=== PATIENT | male | born 1955 | race Caucasian/White ===

== ENCOUNTER → 2019-10-03 08:35 | Outpatient (CLI) | payer MEDICARE, OTHER, SELFPAY ==
--- NOTE | 2019-10-03 08:41 | DI.MRI.S_ITS ---
PROCEDURE: MR LUMBAR SPINE WO CON INDICATIONS: Low back pain TECHNIQUE: Noncontrast sagittal T1 spin echo and T2 fast echo, sagittal STIR, axial T1 and T2 fast spin echo through the lumbar spine. In cases with scoliosis, additional coronal T2 fast spin echo may be performed. COMPARISON: None. FINDINGS: Image quality: Excellent. Alignment and Curvature: There is straightening of the normal lumbar lordosis. Minimal retrolisthesis is seen at L5-S1. Bone Marrow: Marrow is of normal overall signal. No acute vertebral body compression fractures. Spinal Cord: Conus medullaris terminates at the L1 level. Visualized cord demonstrates normal signal and size. Paraspinous Soft Tissues: No paravertebral masses. T12-L1: Normal appearance. L1-L2: The disc height is well-preserved. Loss of disc signal is seen at this level. Relatively prominent bridging anterior osteophytes are seen at this level. Mild generalized disc bulge is seen. Minimal to mild bilateral neural foraminal narrowing can be seen. Moderate central canal narrowing is seen. L2-L3: No significant abnormality is seen. L3-L4: Mild loss of disc height is seen. Loss of disc signal is seen. Mild to moderate disc bulge is seen. There is mild left-sided and no significant right-sided neural foraminal narrowing seen. Mild central canal narrowing is seen. L4-L5: The disc height is well-preserved. Loss of disc signal is seen at this level. Moderate disc bulge is seen, which is eccentric to the left, with a left lateral protrusion, as on series 5, image 28. At least moderate facet hypertrophy is seen at this level. There is at least moderate left-sided and moderate right-sided neural foraminal narrowing seen. At least moderate central canal narrowing is seen at this level. L5-S1: The disc height is well-preserved. Loss of disc signal is seen at this level. Bridging endplate osteophytes are seen. Moderate disc bulge is seen, which is eccentric to the right. Moderate facet joint hypertrophy is seen. Moderate to severe bilateral neural foraminal narrowing is seen, left worse than right. There is a degree of compression seen upon the exiting nerve roots. Mild central canal narrowing is seen. IMPRESSION: Multiple levels of lumbar spine degenerative changes are seen, which are overall most prominent at the L5-S1 level. Dictated by: Linden Houser M.D. on 10/05/2019 at 8:56 Approved by: Linden Houser M.D. on 10/05/2019 at 9:00
== END ==
PROVIDERS: PCP Physician Assistant; Referring Provider Physician Assistant; Visit Provider Physician Assistant
DX: M54.5 Low back pain (principal); M47.817 Spondylosis without myelopathy or radiculopathy, lumbosacral region; M47.816 Spondylosis without myelopathy or radiculopathy, lumbar region
CPT/HCPCS: 72148

== ENCOUNTER → 2021-12-25 09:04 | Outpatient (CLI) | payer MEDICARE, OTHER, SELFPAY ==
[2021-12-25 11:09] LABS: COVID19 -Nasal RAPID Negative (Negative)
== END ==
PROVIDERS: PCP Family Medicine; Visit Provider Surgery
DX: Z20.822 Contact with and (suspected) exposure to COVID-19 (principal); Z01.812 Encounter for preprocedural laboratory examination
CPT/HCPCS: 87635; C9803

== ENCOUNTER 2021-12-26 09:37 | Day surgery (SDC) | payer MEDICARE, OTHER, SELFPAY ==
[2021-12-26] VITALS (8 sets, daily range): BP systolic 128–148; BP diastolic 70–90; PULSE 46–79; RESP 10–18; TEMP 36.7–36.8; O2SAT 95–98; BMI 32.6
[2021-12-26] MEDS: LACTATED RINGERS 1,000 ML 42 ML IV (10:18)
--- NOTE | 2021-12-26 11:23 | PM.HP.1 ---
History of Present Illness History of Present Illness Date Patient Seen: 12/26/21 Time Patient Seen: 11:23 Chief complaint: SDC Narrative: this is his 3rd colonoscopy, last one 7 years ago. Found polyps on the first scope, none since. No family history for colon cancer. Patient History Family & Social History Social History: household members spouse Tobacco & Substance use: Smoking Status Former smoker alcohol intake current alcohol intake frequency a few times a week Substance Use Type does not use Meds Home Medications and Allergies Home Medications Medication Instructions Recorded Confirmed Type sodium,potassium,mag sulfates 17.5 See Rx Instructions PO .COMPLEX 12/18/21 12/26/21 Rx gram-3.13 gram-1.6 gram oral soln #354 mL (Suprep Bowel Prep Kit) ascorbic acid (vitamin C) 2,000 mg 2,000 mg PO DAILY 12/26/21 12/26/21 History tablet,extended release chlorthalidone 25 mg tablet 12.5 mg PO DAILY 12/26/21 12/26/21 History losartan 100 mg tablet 100 mg PO DAILY 12/26/21 12/26/21 History meloxicam 15 mg tablet 15 mg PO DAILY 12/26/21 12/26/21 History Allergies Allergy/AdvReac Type Severity Reaction Status Date / Time No Known Drug Allergies Allergy Verified 12/26/21 09:57 Review of Systems Review of Systems ROS: Yes All systems reviewed with the patient and are negative except as otherwise documented Exam Vital Signs (past 8 hours): - 12/26/21 10:08 Temperature 98.0 F Pulse Rate 60 Respiratory Rate 18 Blood Pressure 128/86 Pulse Oximetry 97 Oxygen Delivery Method Room Air Oxygen Delivery Method Room Air Const General: cooperative and comfortable HENCO Head: normal to inspection, normocephalic and atraumatic Eyes General: appearance normal, both eyes and all related structures Neck Neck: trachea midline Chest Chest: normal inspection of the chest Resp Effort & Inspection: normal respiratory effort and able to speak in complete sentences Cardio Rate: regular rate Rhythm: regular rhythm GI Palpation: soft Skin General: no rashes or lesions noted Neuro General: patient alert, patient awake and patient oriented x3 Cranial Nerves: tongue midline Extrem General: normal to inspection Psych Appearance: grossly normal Mental Status: mental status grossly normal Judgment: judgment good Assessment & Plan Assessment & Plan narrative: h/o colon polyps colonoscopy wit MAC COVID-19 COVID-19 status: Negative Time Spent With Patient Time with patient: less than 30 minutes Critical Care time: I spent a total of [] minutes of critical care time on this patient's care today; this time is exclusive of procedural time.
--- NOTE | 2021-12-26 11:43 | PM.OP.COLON ---
Operative Date/Time/Diagnoses Date of procedure: 12/26/21 Time of procedure: 11:43 Pre-op diagnosis: History of colon polyps Post-op diagnosis: same Procedure & Clinicians Study performed: Colonoscopy using MAC Same procedure as scheduled: Yes Indications: History of colon polyps Surgeon: Anali Leo Procedure Notes Procedure in detail: Preop diagnosis: History of colon polyps Preop diagnosis: Same Operative procedure: Colonoscopy with MAC Surgeon: Aida Leo MD Findings: No polyps, no diverticuli. Procedure: Patient placed in lateral position. Rectal exam performed showing normal tone no masses. Colonoscope inserted into the rectum and advanced to ileocecal valve with minimal difficulty. Insufflation extraction scope and the above findings. Impression: No polyps identified, no diverticulosis. Plan: Repeat colonoscopy in 10 years unless otherwise indicated by change in clinical condition or family history Specimen(s): none sent Complications: none Post-procedure Recommendations: Colonoscopy in 10 years Follow up: as needed Disposition: PACU
== END 2021-12-26 12:25 | disposition home or self-care (01) ==
PROVIDERS: PCP Family Medicine; Referring Provider Surgery; Visit Provider Surgery
PROC: 0DJD8ZZ Inspection of Lower Intestinal Tract, Via Natural or Artificial Opening Endoscopic (ICD-10-PCS; CPT 45378; principal; 2021-12-26 10:45)
DX: Z12.11 Encounter for screening for malignant neoplasm of colon (principal); Z86.010 Personal history of colon polyps
CPT/HCPCS: G0121; J2704; J3010

== ENCOUNTER → 2022-01-16 11:04 | Outpatient (CLI) | payer MEDICARE, OTHER, SELFPAY ==
--- NOTE | 2022-01-16 | DI.RAD.S_ITS ---
PROCEDURE: XR HAND LT MIN 3V INDICATIONS: left hand pain TECHNIQUE: 3 views of the hand(s) acquired. COMPARISON: None. FINDINGS: Bones: No acute fracture or dislocation. 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 There is diffuse interphalangeal joint space narrowing. No periarticular osteopenia or bony erosions. No suspicious bony lesions. Soft tissues: No suspicious soft tissue calcifications. IMPRESSION: 1. Moderate osteoarthritis. Dictated by: Julianna Rincon M.D. on 01/16/2022 at 12:32 Approved by: Julianna Rincon M.D. on 01/16/2022 at 12:33
== END ==
PROVIDERS: PCP Family Medicine; Referring Provider Family Medicine; Visit Provider Family Medicine
DX: M19.042 Primary osteoarthritis, left hand (principal); M79.642 Pain in left hand
CPT/HCPCS: 73130

== ENCOUNTER → 2022-08-07 12:41 | Outpatient (CLI) | payer MEDICARE, OTHER, SELFPAY ==
--- NOTE | 2022-08-07 | DI.CT.S_ITS ---
PROCEDURE: CT LE RT WO CON INDICATIONS: Primary osteoarthritis, right ankle and foot TECHNIQUE: Noncontrast 1-1.5 mm axial sections acquired from above the tibiotalar joint to the bottom of the calcaneus, with coronal and sagittal reformats. COMPARISON: [facility], CR, XR FOOT 3 VIEWS WEIGHT BEARING RIGHT, 07/18/2022, 10:49. FINDINGS: Image quality: Diagnostic. Beam hardening artifacts from right foot surgical hardware are seen.. Bones: There is suggestion of prior surgical fusion at talonavicular joint with [address] Beam hardening artifacts are noted from surgical hardware. No evidence of hardware loosening or failure. There is moderate to severe osteoarthritic changes in talonavicular joint with small amount of bony union surrounding the surgical screws. Moderate osteoarthritic changes are noted throughout rest of the right foot most notably involving subtalar joint and navicular cuneiform joints. No acute fracture or dislocation. No definite osteochondral injuries of talar dome are seen. Small plantar and dorsal calcaneal enthesophytes are seen. No suspicious bony lesions. Soft tissues: There is no significant joint effusion. No abnormal soft tissue calcifications. No full-thickness tendon ruptures. IMPRESSION: 1. Postsurgical changes at talonavicular joint with [address] No evidence of hardware loosening or failure. 2. Moderate to severe osteoarthritic changes at talonavicular joint with prominent dorsal marginal osteophyte formation. Partial bony union surrounding surgical screws at talonavicular joint is seen. 3. [id number] osteoarthritic changes throughout rest of the right foot. No acute fracture or dislocation. No suspicious bony lesions. No definite osteochondral injuries of talar dome. 4. No abnormal soft tissue calcifications. No significant joint effusion or calcified intra-articular loose bodies. No full-thickness tendon rupture. Dictated by: Evert Parker M.D. on 08/07/2022 at 16:41 Approved by: Evert Parker M.D. on 08/07/2022 at 19:54
== END ==
PROVIDERS: PCP Nurse Practitioner Family; Referring Provider Orthopaedic Surgery Foot and Ankle Surgery; Visit Provider Orthopaedic Surgery Foot and Ankle Surgery
DX: M19.071 Primary osteoarthritis, right ankle and foot (principal)
CPT/HCPCS: 73700

== ENCOUNTER → 2023-06-12 09:09 | Outpatient (CLI) | payer MEDICARE, OTHER, SELFPAY ==
--- NOTE | 2023-06-12 09:13 | DI.RAD.S_ITS ---
PROCEDURE: XR HAND LT MIN 3V INDICATIONS: WRIST PAIN TECHNIQUE: 3 views of the hand(s) acquired. COMPARISON: [facility], CR, XR HAND LT MIN 3V, 01/16/2022, 11:16. FINDINGS: Bones: No fractures or dislocations. Carpal bones are normally aligned. No suspicious bony lesions. Indication distal to the 5th metacarpal. Interphalangeal joint space narrowing with osteophytosis. Soft tissues: No suspicious soft tissue calcifications. IMPRESSION: Moderate interphalangeal osteoarthritis, within normal limits for age and slightly progressed from prior. Dictated by: Tim Hoyt M.D. on 06/12/2023 at 16:22 Approved by: Tim Hoyt M.D. on 06/12/2023 at 16:23
--- NOTE | 2023-06-12 09:13 | DI.RAD.S_ITS ---
PROCEDURE: XR WRIST LT MIN 3V INDICATIONS: WRIST PAIN TECHNIQUE: 4 views of the wrist were acquired. COMPARISON: [facility], , WRIST MINIMUM 3 VIEWS LEFT, 07/20/2015, 8:45. FINDINGS: Bones: No fractures or dislocations. No suspicious bony lesions. Stable appearance of the 5th digit. Soft tissues: No suspicious soft tissue calcifications. IMPRESSION: No acute bony abnormality. Dictated by: Tim Hoyt M.D. on 06/12/2023 at 14:20 Approved by: Tim Hoyt M.D. on 06/12/2023 at 14:21
== END ==
PROVIDERS: PCP Nurse Practitioner Family; Referring Provider Nurse Practitioner Family; Visit Provider Nurse Practitioner Family
DX: G56.00 Carpal tunnel syndrome, unspecified upper limb (principal); M19.042 Primary osteoarthritis, left hand; M79.642 Pain in left hand
CPT/HCPCS: 73110; 73130

== ENCOUNTER → 2023-06-24 13:32 | Outpatient (CLI) | payer MEDICARE, OTHER, SELFPAY ==
--- NOTE | 2023-06-24 13:34 | DI.RAD.S_ITS ---
PROCEDURE: XR SHOULDER LT MIN 2V INDICATIONS: SHOULDER PAIN TECHNIQUE: 3 views of the shoulder were acquired. COMPARISON: None. FINDINGS: Bones: No fractures or dislocations. Mild degenerative changes of the glenohumeral acromioclavicular joints. No suspicious bony lesions. Visualized ribs appear intact. Soft tissues: No suspicious soft tissue calcifications. IMPRESSION: No acute osseous abnormalities. Mild degenerative changes of the glenohumeral acromioclavicular joints. Dictated by: Remi Ramirez M.D. on 06/24/2023 at 14:52 Approved by: Remi Ramirez M.D. on 06/24/2023 at 14:55
--- NOTE | 2023-06-24 13:35 | DI.RAD.S_ITS ---
PROCEDURE: XR CERVICAL SPINE 2V OR 3V INDICATIONS: SPINE PAIN TECHNIQUE: 3 view(s) of the cervical spine were acquired. COMPARISON: None. FINDINGS: Bones: No fractures or dislocations to the C7 level. Straightening of the normal cervical lordosis. There are multilevel degenerative changes of the cervical spine with facet and uncovertebral arthropathy, disc height loss with degenerative endplate changes and spurring. The lateral masses of C1 appear intact on the odontoid view. No suspicious bony lesions. Soft tissues: No prevertebral soft tissue swelling. IMPRESSION: Multilevel degenerative changes of the cervical spine, severe within the mid cervical spine. Dictated by: Remi Ramirez M.D. on 06/24/2023 at 14:50 Approved by: Remi Ramirez M.D. on 06/24/2023 at 14:52
== END ==
PROVIDERS: PCP Nurse Practitioner Family; Referring Provider Nurse Practitioner Family; Visit Provider Nurse Practitioner Family
DX: M47.22 Other spondylosis with radiculopathy, cervical region (principal); M54.2 Cervicalgia; M25.512 Pain in left shoulder
CPT/HCPCS: 72040; 73030

== ENCOUNTER → 2023-06-30 08:43 | Outpatient (CLI) | payer MEDICARE, OTHER, SELFPAY ==
--- NOTE | 2023-06-30 08:44 | DI.MRI.S_ITS ---
PROCEDURE: MR CERVICAL SPINE WO CON INDICATIONS: CERVICALGIA TECHNIQUE: Noncontrast sagittal T1 spin echo and T2 fast spin echo, sagittal STIR, foraminal oblique sagittal T2 fast spin echo, and axial gradient echo or T2 fast spin echo through the cervical spine. COMPARISON: None. FINDINGS: Image quality: Excellent. Alignment and Curvature: There is trace retrolisthesis of C3 on C4, C5 on C6. Bone Marrow: Marrow demonstrates normal overall signal. Mild reactive endplate changes are present at C4-5. Spinal Cord: Visualized spinal cord has normal size and signal. No cerebellar tonsillar herniation. Paraspinous Soft Tissues: No paravertebral masses. Prevertebral soft tissues are normal in thickness. Discs: Multilevel moderate to severe disc desiccation most prominent at C5-6, C6-7. C2-C3: Mild disc bulge with effacement of the anterior thecal sac. No foraminal narrowing. C3-C4: Mild disc bulge with superimposed posterior central protrusion. Mild to moderate spinal stenosis. Moderate bilateral foraminal narrowing with uncovertebral hypertrophy. C4-C5: Mild disc bulge with moderate to severe spinal stenosis. Moderate to severe right foraminal narrowing with uncovertebral hypertrophy. C5-C6: Mild disc bulge with moderate to severe spinal stenosis. Moderate right and [id number] left foraminal narrowing with uncovertebral hypertrophy. C6-C7: Mild disc bulge with s moderate chito stenosis. Moderate right and mild left foraminal narrowing with uncovertebral hypertrophy. C7-T1: Mild disc bulge without spinal stenosis. Moderate bilateral foraminal narrowing with uncovertebral hypertrophy. IMPRESSION: Multilevel disc bulges. Multilevel spinal stenosis most prominent at C4-5, C5-6 secondary to disc bulges. Multilevel overall moderate foraminal narrowing most severe at C4-5 secondary to uncovertebral arthropathy. Dictated by: Eun Steve M.D. on 07/01/2023 at 15:34 Approved by: Eun Steve M.D. on 07/01/2023 at 15:39
== END ==
PROVIDERS: PCP Nurse Practitioner Family; Referring Provider Nurse Practitioner Family; Visit Provider Nurse Practitioner Family
DX: M50.11 Cervical disc disorder with radiculopathy, high cervical region (principal); M48.02 Spinal stenosis, cervical region
CPT/HCPCS: 72141

== ENCOUNTER → 2025-01-22 16:41 | Outpatient (CLI) | payer MEDICARE, OTHER, SELFPAY ==
--- NOTE | 2025-01-22 16:41 | DI.RAD.S_ITS ---
PROCEDURE: XR LUMBAR SPINE MIN 4V INDICATIONS: BACK PAIN TECHNIQUE: 5 views of the lumbar spine were acquired, including bilateral oblique views. COMPARISON: None. FINDINGS: Bones: 5 nonrib-bearing vertebrae are present. Straightening of the normal lumbar lordosis. Mild dextrocurvature. No vertebral body compression fractures. No suspicious bony lesions. There is multilevel facet arthropathy, worse at L4-5 and L5-S1. Multilevel disc height loss with degenerative endplate changes and spurring is present. Soft tissues: Overlying bowel gas pattern is normal. No suspicious soft tissue calcifications. Oblique images: No pars defects. IMPRESSION: Multilevel degenerative changes of the lumbar spine. No acute osseous abnormalities. Dictated by: Remi Ramirez M.D. on 01/22/2025 at 17:15 Approved by: Remi Ramirez M.D. on 01/22/2025 at 17:16
--- NOTE | 2025-01-22 16:41 | DI.RAD.S_ITS ---
PROCEDURE: XR HIP W PEL IF DONE BILAT 2V INDICATIONS: BILATERAL HIP PAIN TECHNIQUE: AP pelvis with lateral view(s) of the right hip(s). COMPARISON: None. FINDINGS: Bones: No fractures or dislocations. Mild osteophytosis bilaterally. Pelvic ring appears intact. No suspicious bony lesions. Soft tissues: The visualized bowel gas pattern is normal. No suspicious soft tissue calcifications. IMPRESSION: No acute bony abnormality. Mild degenerative changes bilaterally. Dictated by: Remi Ramirez M.D. on 01/22/2025 at 17:15 Approved by: Remi Ramirez M.D. on 01/22/2025 at 17:15
== END ==
PROVIDERS: PCP Nurse Practitioner Family; Referring Provider Physical Medicine & Rehabilitation; Visit Provider Physical Medicine & Rehabilitation
DX: M47.816 Spondylosis without myelopathy or radiculopathy, lumbar region (principal); M47.817 Spondylosis without myelopathy or radiculopathy, lumbosacral region; M25.551 Pain in right hip; M25.552 Pain in left hip; M54.9 Dorsalgia, unspecified
CPT/HCPCS: 72110; 73521

== ENCOUNTER → 2025-02-05 19:02 | Outpatient (CLI) | payer MEDICARE, OTHER, SELFPAY ==
--- NOTE | 2025-02-05 19:07 | DI.MRI.S_ITS ---
PROCEDURE: MR LUMBAR SPINE WO CON INDICATIONS: Progressive low back pain TECHNIQUE: Noncontrast sagittal T1 spin echo and T2 fast echo, sagittal STIR, and T2 fast spin echo through the lumbar spine. In cases with scoliosis, additional coronal T2 fast spin echo may be performed. COMPARISON: [facility], MR, MR LUMBAR SPINE WO CON, 10/03/2019, 8:49. FINDINGS: Image quality: Excellent. Alignment and Curvature: Grade 1, mild 3 mm, retrolisthesis of L3 on L4. Bone Marrow: Marrow is of normal overall signal. Typical spinal hemangioma in T12. Interval degenerative discogenic bone marrow edema at L4-5. No acute vertebral body compression fractures. Spinal Cord: Conus medullaris terminates at the L1 level. Visualized cord demonstrates normal signal and size. Paraspinous Soft Tissues: No paravertebral masses. T12-L1: Normal appearance. L1-L2: Similar minimal spinal canal stenosis due to slight, diffuse, symmetric, bulging disc, ligamentum flavum thickening, and facet arthrosis. Progressive, bilateral neural foraminal stenosis due to disc height loss, ligamentum flavum thickening, and facet arthrosis. L2-L3: Normal appearance. L3-L4: Mild bilateral lateral recess stenosis secondary to retrolisthesis disc uncovering, ligamentum flavum thickening, minimal bilateral facet arthrosis and epidural lipomatosis. Similar left moderate and right mild neural foraminal stenosis due to retrolisthesis disc uncovering, ligamentum flavum thickening, and facet arthrosis. L4-L5: Progressive moderate to severe spinal canal stenosis due to progressive disc height loss, ligamentum flavum thickening, and facet arthrosis. Severe right lateral recess stenosis due to ligamentum flavum thickening, facet arthrosis, and posteriorly and medially directed perifacet synovial cysts, which is thinly septated, and the superior , subarticular cyst measures 8 mm, and the more inferior, medially directed, cyst measures 7 mm (sagittal stir series 5, images 9 and 10). There is additional moderate to severe left lateral recess stenosis due to disc height loss, diffusely bulging disc and ligamentum flavum thickening, and facet arthrosis. Severe bilateral lateral recess stenosis due to disc height loss, ligamentum flavum thickening, and facet arthrosis. The perifacet synovial cysts are new when compared to prior exam in 2019. Progressive bilateral severe neural foraminal stenosis due to disc height loss, ligamentum flavum thickening, and facet arthrosis. L5-S1: Mild left lateral recess stenosis due to ligamentum flavum thickening, facet arthrosis, and diffuse, symmetric, disc bulge. Progressive left severe and right moderate to severe neural foraminal stenosis due to disc height loss, ligamentum flavum thickening, and facet arthrosis. IMPRESSION: 1. Progressive right moderate to severe spinal canal stenosis at L4-5. 2. Progressive, now severe, neural foraminal stenosis bilaterally at L4-5 and on the left at L5-S1. 3. Progressive severe right lateral recess stenosis at L4-5 secondary to a subarticular and right medial epidural perifacet synovial cysts in combination with degenerative change. Dictated by: Aime Street M.D. on 02/08/2025 at 10:45 Approved by: Aime [address] M.D. on 02/08/2025 at 11:00
== END ==
PROVIDERS: Referring Provider Physical Medicine & Rehabilitation; Visit Provider Physical Medicine & Rehabilitation
DX: M47.26 Other spondylosis with radiculopathy, lumbar region (principal); M47.27 Other spondylosis with radiculopathy, lumbosacral region; M47.22 Other spondylosis with radiculopathy, cervical region; M41.9 Scoliosis, unspecified; M48.061 Spinal stenosis, lumbar region without neurogenic claudication; M48.07 Spinal stenosis, lumbosacral region; M71.38 Other bursal cyst, other site
CPT/HCPCS: 72148